=== PATIENT | female | born 1995 | race Caucasian/White ===

== ENCOUNTER 2024-11-04 18:43 | Emergency (ER) | payer MEDICAID ==
[~2024-11-04] VITALS: Ht 149.9 cm; Wt 75.5 kg
[~2024-11-04 18:43] MED LIST: CEPH-357 PO; IBUP-1051 PO
--- NOTE | 2024-11-04 19:22 | RADIOLOGY REPORT ---
CLINICAL INDICATION: ANKLE PAIN right TECHNIQUE: Right DI ANKLE, COMPLETE(3VW MIN), DI TIB/FIB 2 VWS Comparison: None FINDINGS/IMPRESSION: : There is no evidence of acute fracture or dislocation. Soft tissues are unremarkable.
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
[2024-11-04] MEDS: ketorolac trometh 15mg/ml vial 15 MG/ML ML IM ONE (20:54)
--- NOTE | 2024-11-04 21:09 | RADIOLOGY REPORT ---
CLINICAL INDICATION: Hand and wrist pain TECHNIQUE: DI WRIST, COMPLETE (3VW MIN) Comparison: None FINDINGS: No osseous or joint abnormality identified with no fracture or dislocation. Joint spaces are normal. IMPRESSION: No abnormality demonstrated.
--- NOTE | 2024-11-04 21:10 | RADIOLOGY REPORT ---
Procedure: DI HAND, COMPLETE (3VW MIN) 11/04/2024 08:49 PM TECHNIQUE: DI HAND, COMPLETE (3VW MIN) Indication: Hand and wrist pain Comparison: DI ANKLE, COMPLETE(3VW MIN) on DOS: 11/04/24 FINDINGS: No osseous or joint abnormality identified with no fracture or dislocation. Joint spaces are normal. IMPRESSION: No abnormality demonstrated.
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
[2024-11-04 21:50] VITALS: BP 139/88; PULSE 70; RESP 16; TEMP 98; O2SAT 100
== END 2024-11-04 21:54 | disposition home or self-care (01) ==
LOC: ER 18:43
DX: M25.531 Pain in right wrist (principal); M79.604 Pain in right leg; M25.571 Pain in right ankle and joints of right foot; Z88.1 Allergy status to other antibiotic agents; Z88.2 Allergy status to sulfonamides; Z79.899 Other long term (current) drug therapy; V98.8XXA Other specified transport accidents, initial encounter; Y93.89 Activity, other specified; Y92.89 Other specified places as the place of occurrence of the external cause; Y99.8 Other external cause status
CPT/HCPCS: 29125; 72050; 73110; 73130; 73590; 73610; 96372; 99284; J1885

== ENCOUNTER 2024-11-22 19:59 | Emergency (ER) | payer MEDICAID, OTHER ==
[~2024-11-22] VITALS: Ht 162.6 cm; Wt 69.5 kg
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
[2024-11-22 22:17] VITALS: BP 138/89; PULSE 82; RESP 18; TEMP 98.6; O2SAT 99
== END 2024-11-22 22:18 | disposition home or self-care (01) ==
LOC: ER 19:59
DX: Z02.79 Encounter for issue of other medical certificate (principal); Z88.1 Allergy status to other antibiotic agents; Z88.2 Allergy status to sulfonamides; Z79.899 Other long term (current) drug therapy
CPT/HCPCS: 99281; 99282

== ENCOUNTER 2025-04-20 20:38 | Emergency (ER) | payer MEDICAID, OTHER ==
[~2025-04-20] VITALS: Ht 149.9 cm; Wt 65.0 kg
--- NOTE | 2025-04-20 20:50 | ELECTROCARDIOGRAPH REPORT ---
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 VENKAT Sterling Measurements Intervals [place] Rate: 110 P: 45 PA: 140 QRS: 71 QRSD: 94 T: 41 QT: 335 QTc: 454 Interpretive Statements Sinus tachycardia Low voltage, precordial leads Electronically Signed On 04-22-2025 18:02:[address] VENKAT Sterling Please click the below link to view image of tracing.
[2025-04-20 21:01] LABS: MEAN PLATELET VOLUME 8.0 FL (7.4-10.4); RED CELL DISTRIBUTION WIDTH 13.2 % (11.5-14.5)
[2025-04-20 21:15] LABS: CREATININE 0.69 MG/DL (0.40-0.90); TOTAL CARBON DIOXIDE 26.7 MMOL/L (24-32); eCRCL 84 ML/MIN; eGFR > 90 ML/MIN
[2025-04-20 22:43] LABS: URINE HCG NEGATIVE (NEG)
[2025-04-20 22:45] LABS: LEUKOCYTE ESTERASE ,URINE NEGATIVE (Neg); NITRITES, URINE NEGATIVE (Neg); OCCULT BLOOD,URINE NEGATIVE (Neg)
[2025-04-20 22:52] VITALS: BP 128/93; PULSE 85; RESP 15; TEMP 97.6; O2SAT 98
[2025-04-20 22:52] LABS: UA COLLECTION TYPE CLN CATCH MIDSTREAM
[2025-04-20 22:53] LABS: MUCUS STRANDS MODERATE /LPF (Neg); SQUAMOUS EPITHELIAL CELL,UR FEW /LPF (FEW)
[2025-04-20 22:55] LABS: URIC ACID CRYSTALS 1+ /HPF (NEGATIVE)
--- NOTE | 2025-04-20 23:53 | Physician Documentation ---
History of Present Illness Chief Complaint: Abdominal Pain w/vomiting Stated Complaint: MULTIPLE MED COMPLAINTS Time Seen by MD: 21:14 [facility] of Arrival: POV LETA Is a very pleasant 29-year-old female that presents to the emergency department for evaluation of abdominal pain accompanied by nausea vomiting and flank pain fever and chills times several days. Denies any dysuria but does report blood in her urine. Patient denies any other symptoms at this time. Medication Reconciliation Allergies: Coded Allergies: Sulfa (Sulfonamide Antibiotics) (Verified Allergy, Unknown, 04/20/25) amoxicillin (Verified Allergy, Unknown, RASH, 04/20/25) Scheduled Cephalexin Monohydrate* (Keflex*), 1 CAP PO TID Ibuprofen* (Motrin*), 600 MG PO TID Past Medical History Past Medical History: No Pertinent History Past Surgical History: no surgical history Alcohol Use: None Drug Use: none Review of Systems ROS As stated above in the HPI, otherwise all systems are reviewed and negative. Physical Exam Vital Signs: Temperature: 97.6, Source: Oral, Heart Rate: 85, Respiratory Rate: 15, BP: 128/93, Pulse Oximetry: 98, Weight: 65.000 Oxygen Flow Rate: 0 Physical Exam VITALS: Reviewed and as above. GENERAL: Alert, no apparent distress. HEENT: Normocephalic, atraumatic, PERRL, EOMI, dry mucosa, no erythema RESPIRATORY: Lungs clear, normal breath sounds, no respiratory distress. CHEST: No accessory muscle use, no retractions CV: Regular rate, rhythm, no edema, no murmur, No: JVD GI: Soft, mild tenderness with palpation to the lower abdomen bilaterally, bowels sounds present, no rebound, guarding, or rigidity BACK: No CVA tenderness, or swelling MUSCULOSKELETAL No deformities, no edema SKIN: Warm and dry, no rash NEURO: Oriented x4, No motor or sensory deficit PSYCH: Normal mood and affect, no agitation Progress Results/Orders Results/Orders Orders - GILMA BARNETT [employer] Ceftriaxone Im Kit W/Lidocaine (Rocephin (04/20/25 23:50) Vital Signs 04/20/25 04/20/25 04/20/25 04/20/25 20:43 21:21 21:49 22:52 Temp 97.6 97.6 97.6 Pulse 114 102 85 Resp 15 16 15 B/P (MAP) 139/95 132/90 (104) 128/93 (105) Pulse Ox 99 97 98 O2 Flow Rate 0 0 Laboratory Tests Test 04/20/25 20:53 04/20/25 22:26 White Blood Count 13.1 H Red Blood Count 4.10 L Hemoglobin 12.4 Hematocrit 35.5 Mean Corpuscular Volume 86.7 Mean Corpuscular Hemoglobin 30.2 Mean Corpuscular Hemoglobin Concent 34.8 Red Cell Distribution Width 13.2 Platelet Count 395 Mean Platelet Volume 8.0 Neutrophils (%) (Auto) 71.1 Lymphocytes (%) (Auto) 17.6 L Monocytes (%) (Auto) 9.7 Eosinophils (%) (Auto) 1.2 Basophils (%) (Auto) 0.4 Neutrophils # (Auto) 9.3 H Lymphocytes # (Auto) 2.3 Monocytes # (Auto) 1.3 H Eosinophils # (Auto) 0.2 Basophils # (Auto) 0.1 CBC Comment Sodium Level 137 Potassium Level 3.4 L Chloride Level 103 Carbon Dioxide Level 26.7 Anion Gap 7 L Blood Urea Nitrogen 13 Creatinine 0.69 Estimated GFR/1.73 m2 > 90 BUN/Creatinine Ratio 18.8 Glucose Level 96 Calcium Level 8.6 Total Bilirubin 0.4 Aspartate Amino Transf (AST/SGOT) 11 Alanine Aminotransferase (ALT/SGPT) 18 Alkaline Phosphatase 88 Total Protein 7.7 Albumin 3.4 Globulin 4.3 Albumin/Globulin Ratio 0.8 L Lipase 22 Chemistry Comments Urine Specimen Description Cln catch midstream Urine Color Yellow Urine Clarity Clear Urine pH 6.0 Urine Specific [place] 1.025 Urine Protein Trace Urine Glucose (UA) Negative Urine Ketones Trace H Urine Occult Blood Negative Urine Nitrite Negative Urine Bilirubin Negative Urine Urobilinogen 0.2 Urine Leukocyte Esterase Negative Urine RBC 3-10 Urine WBC 10-20 H Urine Squamous Epithelial Cells Few Urine Uric Acid Crystals 1+ Urine Bacteria 2+ Urine Mucus Moderate Urine Culture Indicated Indicated Volume Urine Centrifuged 10 ml Urine HCG, Qualitative Negative Urine Comment Medical Decision Making Additional information obtaine: other Findings 29-year-old female presented with several days of lower abdominal and bilateral flank pain, fever, chills, nausea, and vomiting. No dysuria or diarrhea. Vitals and exam were consistent with infection but without signs of sepsis or urinary obstruction. Laboratory evaluation revealed mild leukocytosis and urinalysis with significant pyuria, supporting a diagnosis of acute pyelonephritis. Patient was able to tolerate oral intake and remained hemodynamically stable throughout ED stay. No history of immunocompromise, , or complicating comorbidities. Imaging and blood cultures were deferred per guidelines for uncomplicated cases. Initial management included a single dose of IV ceftriaxone, followed by a 10- day course of oral cephalexin, consistent with [employer] [place] recommendations for outpatient therapy when local resistance to fluoroquinolones is high or oral beta-lactam is chosen. Urine culture was obtained to guide ongoing therapy; results will be reviewed and antibiotics adjusted if resistance is identified. Supportive care instructions included acetaminophen and ibuprofen as needed for pain and fever, increased oral fluids, and rest. Patient was counseled on signs of clinical worsening (persistent fever, pain, vomiting, or new symptoms) and instructed to return to the ED if these occur. Outpatient follow-up with primary care was arranged. Disposition: Discharged home in stable condition with appropriate empiric therapy, close follow-up, and return precautions. No evidence of complicated infection or need for inpatient management. Differential Dx:Considerations: -Complete, -Incomplete, Appendicitis, Cholelithasis, Gastroenteritis, Urinary obstruction, Urinary tract infection, Urolithiasis, Other, N/A Departure Disposition: 01 HOME / SELF CARE / HOMELESS Impression: Primary Impression: Acute pyelonephritis Condition: Stable Discharge Instructions: Pyelonephritis, Adult Additional Instructions: Diagnosis: Kidney infection (pyelonephritis) Medications: Keflex (cephalexin) 500 mg: Take one tablet by mouth four times daily (every 6 hours) for 10 days. Finish all the medication, even if you start to feel better. This antibiotic treats the infection in your kidneys. Acetaminophen (Tylenol) or ibuprofen: Take as needed for pain or fever, following package instructions. Supportive Care: Drink plenty of fluids to help your body fight the infection and stay hydrated. Get extra rest while you recover. Monitoring: You should start to feel better within 12 days. If you do not improve, or if your symptoms get worse, contact your doctor or return to the emergency department. Watch for side effects from Keflex, such as rash, itching, severe diarrhea, or trouble breathing. If these occur, stop the medication and seek medical attention right away. Follow-Up: Follow up with your primary care provider as instructed. Your urine culture results may help guide further treatment if needed. If you have any new or worsening symptomssuch as persistent fever, severe pain, vomiting, confusion, or difficulty urinatingreturn to the emergency department. Precautions: Take Keflex exactly as prescribed. Do not skip doses. If you are allergic to cephalosporin antibiotics, let your doctor know immedia tely. If you are , , or have kidney problems, discuss this with your doctor before starting any new medication. When to Seek Help: Return to the emergency department if you have trouble keeping fluids down, cannot take your medication, develop severe pain, or notice blood in your urine. If you have any questions about your medications or your recovery, please contact your healthcare provider. Referrals: NO PRIMARY CARE PROVIDER (PCP) Prescriptions Cephalexin*Monohydrate* (Keflex*) 500 Mg Capsule 1 CAP PO QID for 10 Days, #40 CAP Prov: GILMA BARNETT 04/20/25 Education Educated: Patient Educated regarding: diagnosis, treatment, need for follow up Signature Scribe Signature: A Attestation: Scribed for Gilma Barnett by MANFRED Borjas . 04/20/25 23:55 GILMA BARNETT Apr 20, 2025 23:53
[2025-04-20] MEDS ORDERED: CEPH-585 PO (23:55)
[2025-04-21] MEDS: CefTRIAXone 1000mg IM Kit (w/lidocaine diluent) IM ONE (00:06)
== END 2025-04-21 00:35 | disposition home or self-care (01) ==
LOC: ER 20:39
DX: N10 Acute pyelonephritis (principal); Z88.1 Allergy status to other antibiotic agents; Z88.2 Allergy status to sulfonamides; Z79.899 Other long term (current) drug therapy
CPT/HCPCS: 36415; 80053; 81001; 81025; 83690; 85025; 87088; 93005; 96372; 99284; J0696; 87186